=== PATIENT | male | born 1945 | race Caucasian/White ===

== ENCOUNTER 2021-03-19 11:58 | Emergency (ER) | payer BC ==
--- OUTSIDE RECORDS SUMMARY | 2021-03-19 12:01 | XMS REPORT | Continuity of Care Document ---
:1945 Author Organization [facility] t Address [address] [place] [address] Care Team Providers Name Role Phone Kendy FLETCHER Attending Clinician Unavailable Kendy FLETCHER Attending Clinician Unavailable Kendy Fletcher MD Attending Clinician Payers Payer Name Policy Type Policy Number Effective Date Expiration Date [employer] [id number] 2019 MEDICARE ADV HMO 00:00:00 Problems This patient has no known problems. Allergies, Adverse Reactions, Alerts Allergy Allergy Status Severity Reaction(s) Onset Inactive Treating Comm ents Source Name Type Date Date Clinician NO KNOWN Drug Active [facility] Class [facility] Medications This patient has no known medications. Procedures This patient has no known procedures. Encounters Start End Encounter Admission Attending Care Care Encounter Source Date/Time Date/Time Type Type Clinicians Facility Department ID 2019-07-19 2019-07-19 Outpatient R OSWALDO FLETCHER [facility] [id number] [facility] 14:00:00 14:00:00 OSWALDO FLETCHER [id number] i [facility] 2019-04-05 2019-04-05 Office AISSATOU Fletcher [id number] 13:09:05 13:50:16 Visit Oswaldo [facility] [id number] [facility] [id number] Results This patient has no known results.
[2021-03-19 12:35] LABS: Urine Blood 3+ (Negative); Urine Glucose Negative (Negative); Urine Protein 3+ (Negative); Urine Specific Gravity 1.015 (1.005-1.030); Urine pH 8.5 (5.0-7.0)
[2021-03-19 13:21] LABS: Absolute Lymphocytes (CBC) 0.3 K/uL (0.7-4.9); Hematocrit 38.7 % (39.6-49.0); Lymphocytes % 2.7 % (15.3-44.8); MPV 8.8 fL (7.6-11.3); RBC Red Blood Cell Count 4.32 M/uL (4.33-5.43)
[2021-03-19 13:25] LABS: Protime INR 1.68
[2021-03-19 13:39] LABS: Albumin 2.3 g/dL (3.4-5.0); Bilirubin Direct 0.8 mg/dL (0-0.2); Bilirubin Total 1.4 mg/dL (0.2-1.0); Protein, Total 6.1 g/dL (6.4-8.2)
[2021-03-19 14:29] LABS: Blood Morphology Comment NOT SEEN (NOT SEEN); Platelet Estimate ADEQ; White Blood Cell Scan OK (OK)
[2021-03-19 14:50] LABS: Urine Amorphous Sediment 2+ /HPF (NONE SEEN); Urine Bacteria >50 /HPF (NONE SEEN); Urine Mucus 2+ /HPF (NONE SEEN); Urine RBC >50 /HPF (NONE SEEN)
[2021-03-19] MEDS ORDERED: CEFTRIAXONE 1000 MG/VIAL ONE (15:38)
[2021-03-19] MEDS ORDERED: NA CHLORIDE 0.9% 100 ML ONE (15:38)
--- NOTE | 2021-03-19 16:41 | ER ---
Nurse's Notes [facility] Name: Donovan Crowe Age: 75 yrs Sex: Male : 1945 Arrival Date: 03/19/2021 Time: 12:29 Bed 2 Private MD: Diagnosis: UTI/ Urinary tract infection, site not specified;Hematuria, unspecified Presentation: 03/19 12:35 Chief complaint: Patient states: Pt from home, reports general weakness and hematuria ph "for a few days." Denies fever, N/V/D. Hx of prostate cancer. Coronavirus screen: Vaccine status: Patient reports receiving the 1st dose of the Covid vaccine. At this time, the client does not indicate any symptoms associated with coronavirus-19. Ebola Screen: No symptoms or risks identified at this time. Initial Sepsis Screen: Does the patient meet any 2 criteria? No. Patient's initial sepsis screen is negative. Does the patient have a suspected source of infection? No. Patient's initial sepsis screen is negative. Risk Assessment: Do you want to hurt yourself or someone else? Patient reports no desire to harm self or others. Onset of symptoms was March 19, 2021. 12:35 Method Of Arrival: EMS: [facility] ph 12:35 Acuity: ROSALEE 3 ph Historical: - Allergies: 12:38 PENICILLINS; ph - PMHx: 12:38 Hypertensive disorder; Cerebrovascular accident; Atrial fibrillation; cancer ph (prostate); cancer (thyroid); - Immunization history:: Adult Immunizations up to date, Client reports receiving the 1st dose of the Covid vaccine. - Social history:: Smoking status: Patient denies any tobacco usage or history of. Screenin:38 Abuse screen: Denies threats or abuse. Denies injuries from another. Nutritional ph screening: No deficits noted. Tuberculosis screening: No symptoms or risk factors identified. Fall Risk None identified. Assessment: 13:30 General: Appears in no apparent distress. obese, Behavior is calm, cooperative, ph appropriate for age, Denies fever. Pain: Complains of pain in right knee, reports that pain is chronic. Neuro: Level of Consciousness is awake, alert, obeys commands, Oriented to person, place, time, situation, Reports weakness "all over". Cardiovascular: Capillary refill < 3 seconds in bilateral fingers Patient's skin is warm and dry. Edema is 3+ to left midcalf, left ankle, left foot, right midcalf, right ankle and right foot Rhythm is atrial fibrillation. Respiratory: Airway is patent Respiratory effort is even, unlabored, Respiratory pattern is regular, symmetrical, Denies shortness of breath. GI: No signs and/or symptoms were reported involving the gastrointestinal system. : Urine is blood tinged. 14:25 Reassessment: Patient appears in no apparent distress at this time. Patient and/or ph family updated on plan of care and expected duration. Pain level reassessed. Patient is alert, oriented x 3, equal unlabored respirations, skin warm/dry/pink. 14:54 Derm: Skin is intact, Skin is pink, warm \\T\\ dry. Musculoskeletal: Circulation, motion, ph and sensation intact. Range of motion: intact in all extremities. 15:52 Reassessment: Patient appears in no apparent distress at this time. Patient and/or ph family updated on plan of care and expected duration. Pain level reassessed. Patient is alert, oriented x 3, equal unlabored respirations, skin warm/dry/pink. 16:49 Reassessment: Patient appears in no apparent distress at this time. Patient and/or ph family updated on plan of care and expected duration. Pain level reassessed. Patient is alert, oriented x 3, equal unlabored respirations, skin warm/dry/pink. D/C pending completion of IV fluids. 17:50 Reassessment: Patient appears in no apparent distress at this time. Patient and/or ph family updated on plan of care and expected duration. Pain level reassessed. Patient is alert, oriented x 3, equal unlabored respirations, skin warm/dry/pink. [facility] at bedside to transport pt home, mccain catheter d/c w/ some bleeding noted afterwards, bleeding controlled prior to d/c. Vital Signs: 12:35 BP 107 / 51; Pulse 81; Resp 18; Temp 98.2; Pulse Ox 96% on R/A; Weight 145.15 kg; ph Height 5 ft. 11 in. (180.34 cm); 13:49 BP 120 / 59; Pulse 87; Resp 18; Pulse Ox 96% ; ph 15:52 BP 125 / 54; Pulse 78; Resp 18; Pulse Ox 99% on R/A; ph 16:50 BP 136 / 74; Pulse 85; Resp 20; Pulse Ox 95% on R/A; ph 17:50 BP 138 / 82; Pulse 87; Resp 18; Temp 97.8; Pulse Ox 99% on R/A; ph 12:35 Body Mass Index 44.63 (145.15 kg, 180.34 cm) ph Vitals: 13:49 Cardiac Rhythm Assessment Irregular Atrial fibrillation. ph ED Course: 12:29 Patient arrived in ED. ph 12:30 Joel Lyman PA is PHCP. jr8 12:30 Eddie Blandon MD is Attending Physician. jr8 12:35 Lizz Locke RN is Primary Nurse. ph 12:37 Triage completed. ph 12:38 Arm band placed on Patient placed in an exam room, on a stretcher, on foundry finisher, ph on pulse oximetry. 12:38 Patient has correct armband on for positive identification. Placed in gown. Bed in low ph position. Call light in reach. Side rails up X2. aviation program manager on. Pulse ox on. NIBP on. Door closed. Noise minimized. Warm blanket given. 13:00 Maintain EMS IV. Dressing intact. Good blood return noted. Site clean \\T\\ dry. Gauge \\T\\ ph site: 20 RAC. 14:20 3-way catheter inserted, using sterile technique, 22 Fr. Specimen obtained. Returned ph bloody urine. 18:00 No provider procedures requiring assistance completed. Mccain cath removed intact, ph balloon deflated. IV discontinued, intact, bleeding controlled, No redness/swelling at site. Pressure dressing applied. Administered Medications: 15:40 Drug: Rocephin (cefTRIAXone) 1 grams Route: IV; Rate: calculated rate; Site: right ph antecubital; 16:30 Follow up: Response: No adverse reaction; IV Status: Completed infusion ph 15:40 Drug: NS 0.9% 1000 ml Route: IV; Rate: 1000 ml; Site: right antecubital; ph 17:30 Follow up: Response: No adverse reaction; IV Status: Completed infusion; IV Intake: ph 1000ml Intake: 17:30 IV: 1000ml; Total: 1000ml. ph Outcome: 16:41 Discharge ordered by . jr8 18:24 Discharged to home via ambulance. ph 18:24 Condition: good 18:24 Discharge instructions given to patient, family, Instructed on discharge instructions, follow up and referral plans. medication usage, Demonstrated understanding of instructions, follow-up care, medications, Prescriptions given X 1. 18:26 Patient left the ED. ph Signatures: Joel Lyman PA PA jr8 Lizz Locke RN RN ph Corrections: (The following items were deleted from the chart) 14:55 13:30 : Reports ph ph
--- NOTE | 2021-03-19 16:41 | EDPHYS ---
Physician Documentation [facility] Name: Donovan Crowe Age: 75 yrs Sex: Male : 1945 Arrival Date: 03/19/2021 Time: 12:29 Bed 2 Private MD: PAMELLA Physician Eddie Blandon HPI: 03/19 15:09 This 75 yrs old Male presents to ER via EMS with complaints of Hematuria. jr8 15:09 The patient presents with hematuria. Onset: The symptoms/episode began/occurred jr8 acutely, today. Modifying factors: The symptoms are alleviated by nothing, the symptoms are aggravated by nothing. Associated signs and symptoms: Pertinent positives: general weakness. Severity of symptoms: At their worst the symptoms were mild, in the emergency department the symptoms are unchanged. The patient has not experienced similar symptoms in the past. The patient has not recently seen a physician. This is a 75-year-old male patient that presented to the emergency room with general fatigue and sudden onset of hematuria. Patient has a history of prostate enlargement and cancer. Currently in remission. Had radiation several years back and has been doing well. Denies fevers or other symptoms at this time.. Historical: - Allergies: 12:38 PENICILLINS; ph - PMHx: 12:38 Hypertensive disorder; Cerebrovascular accident; Atrial fibrillation; cancer ph (prostate); cancer (thyroid); - Immunization history:: Adult Immunizations up to date, Client reports receiving the 1st dose of the Covid vaccine. - Social history:: Smoking status: Patient denies any tobacco usage or history of. ROS: 15:09 Constitutional: Positive for fatigue. jr8 15:09 : Positive for hematuria. 15:09 Neuro: Positive for weakness. 15:09 All other systems are negative. Exam: 15:09 Constitutional: This is a well developed, well nourished patient who is awake, alert, jr8 and in no acute distress. ENT: Nares patent. No nasal discharge, no septal abnormalities noted. Tympanic membranes are normal and external auditory canals are clear. Oropharynx with no redness, swelling, or masses, exudates, or evidence of obstruction, uvula midline. Mucous membranes moist. Cardiovascular: Regular rate and rhythm with a normal S1 and S2. No gallops, murmurs, or rubs. Normal PMI, no JVD. No pulse deficits. Respiratory: Lungs have equal breath sounds bilaterally, clear to auscultation and percussion. No rales, rhonchi or wheezes noted. No increased work of breathing, no retractions or nasal flaring. Abdomen/GI: Soft, non-tender, with normal bowel sounds. No distension or tympany. No guarding or rebound. No evidence of tenderness throughout. Skin: Warm, dry with normal turgor. Normal color with no rashes, no lesions, and no evidence of cellulitis. MS/ Extremity: Pulses equal, no cyanosis. Neurovascular intact. Full, normal range of motion. Neuro: Awake and alert, GCS 15, oriented to person, place, time, and situation. Cranial nerves II-XII grossly intact. Motor strength 5/5 in all extremities. Sensory grossly intact. 15:09 : Male external genitalia: normal, no discharge, no erythema, no swelling, no tenderness. Vital Signs: 12:35 BP 107 / 51; Pulse 81; Resp 18; Temp 98.2; Pulse Ox 96% on R/A; Weight 145.15 kg; ph Height 5 ft. 11 in. (180.34 cm); 13:49 BP 120 / 59; Pulse 87; Resp 18; Pulse Ox 96% ; ph 15:52 BP 125 / 54; Pulse 78; Resp 18; Pulse Ox 99% on R/A; ph 16:50 BP 136 / 74; Pulse 85; Resp 20; Pulse Ox 95% on R/A; ph 17:50 BP 138 / 82; Pulse 87; Resp 18; Temp 97.8; Pulse Ox 99% on R/A; ph 12:35 Body Mass Index 44.63 (145.15 kg, 180.34 cm) ph MDM: 12:30 Patient medically screened. [facility] 15:09 Data reviewed: vital signs, nurses notes, lab test result(s). Data interpreted: Pulse jr8 oximetry: on room air is 96 %. Interpretation: normal. Counseling: I had a detailed discussion with the patient and/or guardian regarding: the historical points, exam findings, and any diagnostic results supporting the discharge/admit diagnosis, lab results, the need for outpatient follow up, a family practitioner, to return to the emergency department if symptoms worsen or persist or if there are any questions or concerns that arise at home. 16:39 ED course: Patient has remained hemodynamically stable and afebrile. We will start jr8 patient on antibiotics at home for urinary tract infection as this is most likely the cause of his mild hematuria. No gross hematuria present. Patient needs to follow-up in the next couple days. If he were to get worse at any point time to come back. This has been discussed with the patient and he is comfortable with this at this time.. 03/19 12:35 Order name: Basic Metabolic Panel; Complete Time: 14:17 [facility] 03/19 12:35 Order name: CBC with Diff; Complete Time: 14:31 [facility] 03/19 12:35 Order name: Hepatic Function; Complete Time: 14:17 [facility] 03/19 12:35 Order name: Urine Microscopic Only; Complete Time: 15:08 [facility] 03/19 12:35 Order name: Protime (+inr); Complete Time: 13:33 [facility] 03/19 12:35 Order name: Ptt, Activated; Complete Time: 13:33 [facility] 03/19 12:35 Order name: IV Saline Lock; Complete Time: 13:35 [facility] 03/19 12:35 Order name: Labs collected and sent; Complete Time: 13:35 [facility] 03/19 12:35 Order name: Urine Dipstick-Ancillary (obtain specimen); Complete Time: 14:24 [facility] 03/19 12:35 Order name: Urine Dipstick-Ancillary [facility] 03/19 14:29 Order name: CBC Smear Scan; Complete Time: 14:31 [facility] 03/19 14:51 Order name: Urine Culture [facility] 03/19 12:35 Order name: Ren-Hematuria; Complete Time: 14:24 [facility] Administered Medications: 15:40 Drug: Rocephin (cefTRIAXone) 1 grams Route: IV; Rate: calculated rate; Site: right ph antecubital; 16:30 Follow up: Response: No adverse reaction; IV Status: Completed infusion ph 15:40 Drug: NS 0.9% 1000 ml Route: IV; Rate: 1000 ml; Site: right antecubital; ph 17:30 Follow up: Response: No adverse reaction; IV Status: Completed infusion; IV Intake: ph 1000ml Disposition: 03/20 07:49 Co-signature as Attending Physician, Eddie Blandon MD I agree with the assessment and justus plan of care. Disposition Summary: 03/19/21 16:41 Discharge Ordered Location: Home jr8 Problem: new jr8 Symptoms: have improved jr8 Condition: Stable jr8 Diagnosis - UTI/ Urinary tract infection, site not specified jr8 - Hematuria, unspecified jr8 Followup: jr8 - With: Private Physician - When: 5 - 6 days - Reason: Recheck today's complaints, Continuance of care, Re-evaluation by your physician Discharge Instructions: - Discharge Summary Sheet jr8 - Hematuria, Adult jr8 - Urinary Tract Infection, Adult jr8 Forms: - Medication Reconciliation Form jr8 - Thank You Letter jr8 - Antibiotic Education jr8 - Prescription Opioid Use jr8 Prescriptions: - Cipro 500 mg Oral Tablet - take 1 tablet by ORAL route every 12 hours for 7 days; 14 tablet; Refills: 0, jr8 Product Selection Permitted Signatures: Dispatcher [employer] Eddie Torres MD MD cha Roszak, Josh, PA PA jr8 Lizz Locke, RN RN ph
[2021-03-19 18:49] VITALS: BP 138/82; TEMP 97.8; O2SAT 99
== END 2021-03-19 18:26 | disposition home or self-care (01) ==
LOC: ER 11:58
DX: N39.0 Urinary tract infection, site not specified (principal); I10 Essential (primary) hypertension; Z85.46 Personal history of malignant neoplasm of prostate; Z88.0 Allergy status to penicillin
CPT/HCPCS: 36415; 80048; 80076; 81003; 81015; 85025; 85610; 85730; 87086; 87088; 96361; 96365; 99284